=== PATIENT | male | born 1995 | race Caucasian/White ===

== ENCOUNTER 2017-06-01 17:16 | Emergency (ER) | payer BC, OTHER ==
[2017-06-01 17:40] VITALS: BP 175/102; PULSE 100; RESP 18; TEMP 98.8
[2017-06-01] MEDS ORDERED: SODIUM CHLORIDE 0.9% 1,000 ML IV STA (18:25)
--- NOTE | 2017-06-01 18:39 | ED ---
Dizziness HPI - General Chief Complaint: Dizziness Stated Complaint: ABDOMINAL PAIN Time Seen by Provider: 06/01/17 18:19 Source: patient, RN notes reviewed, old records reviewed Mode of arrival: ambulatory Limitations: no limitations - History of Present Illness Initial Comments: 21-year-old male presents emergency Department with episode of dizziness and lightheadedness. He was standing up at work, and was sent in for further evaluation. He reports that he has a dental infection recently started on amoxicillin. Patient reports that he has not been trying to drink fluids. Denies any chest pain shortness breath or abdominal pain. Denies any diarrhea or vomiting. Patient states that he has had no other recent symptoms. Patient denies any recent fever, chills, shortness of breath, chest pain, back pain, abdominal pain, nausea vomiting, numbness or tingling, dysuria or hematuria, constipation or diarrhea, headaches or visual changes, or any other current symptoms - Related Data Home Medications Medication Instructions Recorded Confirmed Ibuprofen [Motrin] 400 - 800 mg PO Q6HR PRN 06/01/17 06/01/17 Allergies Allergy/AdvReac Type Severity Reaction Status Date / Time No Known Allergies Allergy Verified 06/01/17 18:28 Review of Systems ROS Statement: Those systems with pertinent positive or pertinent negative responses have been documented in the HPI. ROS Other: All systems not noted in ROS Statement are negative. Past Medical History Past Medical History: No Reported History History of Any Multi-Drug Resistant Organisms: None Reported Past Surgical History: No Surgical Hx Reported Past Psychological History: No Psychological Hx Reported Smoking Status: Never smoker Past Alcohol Use History: None Reported Past Drug Use History: None Reported General Exam - General Exam Comments Initial Comments: Well-appearing 21-year-old male. No distress. Limitations: no limitations General appearance: alert, in no apparent distress Head exam: Present: atraumatic, normocephalic, normal inspection Eye exam: Present: normal appearance, PERRL, EOMI. Absent: scleral icterus, conjunctival injection, periorbital swelling ENT exam: Present: normal exam, normal oropharynx, mucous membranes moist. Absent: other (Patient has poor dentition, dental carries over tooth 18) Neck exam: Present: normal inspection. Absent: tenderness, meningismus, lymphadenopathy Respiratory exam: Present: normal lung sounds bilaterally. Absent: respiratory distress, wheezes, rales, rhonchi, stridor Cardiovascular Exam: Present: regular rate, normal rhythm, normal heart sounds. Absent: systolic murmur, diastolic murmur, rubs, gallop, clicks GI/Abdominal exam: Present: soft, normal bowel sounds. Absent: distended, tenderness, guarding, rebound, rigid Extremities exam: Present: normal inspection, full ROM, normal capillary refill. Absent: tenderness, pedal edema, joint swelling, calf tenderness Back exam: Present: normal inspection Neurological exam: Present: alert, oriented X3, CN II-XII intact Psychiatric exam: Present: normal affect, normal mood Skin exam: Present: warm, dry, intact, normal color. Absent: rash Course Vital Signs 06/01/17 17:38 Temperature 98.8 F Pulse Rate 100 Respiratory 18 Rate Blood Pressure 175/102 O2 Sat by Pulse 100 Oximetry EKG Findings - EKG Comments: EKG Findings:: EKG shows normal sinus rhythm. Ventricular rate of 60 beats provider. FL interval 140 ms. QRS ration 96 most seconds. QT QTC 370/[address] elevation or T-wave inversion. No atrial or ventricular arrhythmias. Medical Decision Making - Medical Decision Making 21-year-old male chief complaint of near Celexa and lightheadedness after standing while work today. Patient's labwork was reviewed and normal. No evidence of any rales. Patient's EKG was also reviewed and normal. Patient chest x-ray shows no abnormalities. Patient was feeling better after IV fluids. He reports that he is also having a dental infection currently. 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 Patient understands treatment plan will comply. Return parameters were discussed. - Lab Data Result diagrams: 06/01/17 18:40 06/01/17 18:40 Lab Results 06/01/17 06/01/17 Range/Units 18:40 18:40 WBC 6.7 (4.0-11.0) k/uL RBC 4.67 (4.30-5.90) m/uL Hgb 14.1 (13.0-17.5) gm/dL Hct 42.5 (39.0-53.0) % MCV 90.9 (80.0-100.0) fL MCH 30.1 (25.0-35.0) pg MCHC 33.1 (31.0-37.0) g/dL RDW 12.3 (11.5-15.5) % Plt Count 217 (150-450) k/uL Neutrophils % 52 % Lymphocytes % 38 % Monocytes % 7 % Eosinophils % 1 % Basophils % 1 % Neutrophils # 3.5 (1.3-7.7) k/uL Lymphocytes # 2.5 (1.0-4.8) k/uL Monocytes # 0.5 (0-1.0) k/uL Eosinophils # 0.1 (0-0.7) k/uL Basophils # 0.1 (0-0.2) k/uL Sodium 141 (137-145) mmol/L Potassium 4.3 (3.5-5.1) mmol/L Chloride 107 (98-107) mmol/L Carbon Dioxide 23 (22-30) mmol/L Anion Gap 11 mmol/L BUN 8 L (9-20) mg/dL Creatinine 0.78 (0.66-1.25) mg/dL Est GFR (MDRD) Af Amer >60 (>60 ml/min/1.73 sqM) Est GFR (MDRD) Non-Af >60 (>60 ml/min/1.73 sqM) Glucose 89 (74-99) mg/dL Calcium 9.6 (8.4-10.2) mg/dL Total Bilirubin 0.7 (0.2-1.3) mg/dL AST 23 (17-59) U/L ALT 22 (21-72) U/L Alkaline Phosphatase 58 (38-126) U/L Total Protein 7.8 (6.3-8.2) g/dL Albumin 4.6 (3.5-5.0) g/dL - Radiology Data Radiology results: report reviewed X-rays reveal any negative for any acute process. Disposition Clinical Impression: Lightheadedness, Dehydration Disposition: HOME SELF-CARE Condition: Good Instructions: Dizziness (ED) Additional Instructions: Patient advised to continue take the antibiotics, and Motrin for pain. Patient needs to remain hydrated as that is the cause of her lightheadedness and near syncopal episode. Patient should follow-up with a primary care provider. Return to emergency department if any alarming signs or symptoms occur. Referrals: None,Stated [Primary Care Provider] - 1-2 days Daisy Shields MD [STAFF PHYSICIAN] - 1-2 days Time of Disposition: 19:27
[2017-06-01 19:00] LABS: Basophils # (A) 0.1 k/uL (0-0.2); Basophils % (A) 1 %; CH 31.1; CHCM 34.4; Eosinophils # (A) 0.1 k/uL (0-0.7); Eosinophils % (A) 1 %; HCT 42.5 % (39.0-53.0); HDW 2.76; HGB 14.1 gm/dL (13.0-17.5); Luc # (Auto) 0.13; Luc % (Auto) 2; Lymphocytes # (A) 2.5 k/uL (1.0-4.8); Lymphocytes % (A) 38 %; MCH 30.1 pg (25.0-35.0); MCHC 33.1 g/dL (31.0-37.0); MCV 90.9 fL (80.0-100.0); Mean Platelet Volume 6.9; Monocytes # (A) 0.5 k/uL (0-1.0); Monocytes % (A) 7 %; Neutrophils # (A) 3.5 k/uL (1.3-7.7); Neutrophils % (A) 52 %; RBC 4.67 m/uL (4.30-5.90); RDW 12.3 % (11.5-15.5); WBC 6.7 k/uL (4.0-11.0); WBC (Perox) 6.65
[2017-06-01 19:10] LABS: ALT 22 U/L (21-72); AST 23 U/L (17-59); Alkaline Phosphatase 58 U/L (38-126); Anion Gap 11 mmol/L; Blood Urea Nitrogen 8 mg/dL (9-20); Calcium 9.6 mg/dL (8.4-10.2); Carbon Dioxide 23 mmol/L (22-30); Chloride 107 mmol/L (98-107); Glucose 89 mg/dL (74-99); Non-African American GFR(MDRD) >60 (>60 ml/min/1.73 sqM); Potassium 4.3 mmol/L (3.5-5.1); Sodium 141 mmol/L (137-145); Total Bilirubin 0.7 mg/dL (0.2-1.3); Total Protein 7.8 g/dL (6.3-8.2)
[2017-06-01] MEDS ORDERED: AMOXICILLIN 500MG STARTER PACK 3 CAP BTL PO STA (19:27)
--- NOTE | 2017-06-01 19:42 | XR ---
EXAMINATION TYPE: XR chest 2V DATE OF EXAM: 06/01/2017 COMPARISON: NONE HISTORY: Chest pain per order. TECHNIQUE: Frontal and lateral views of the chest are obtained. FINDINGS: There is no focal air space opacity, pleural effusion, or pneumothorax seen. The cardiac silhouette size is within normal limits. The osseous structures are intact. IMPRESSION: No acute cardiopulmonary process.
== END 2017-06-01 19:40 | disposition home or self-care (01) ==
LOC: EC 17:16
DX: E86.0 Dehydration (principal); K04.7 Periapical abscess without sinus; K02.9 Dental caries, unspecified
CPT/HCPCS: 36415; 71020; 80053; 85025; 93005; 99284

== ENCOUNTER 2017-09-19 20:12 | Emergency (ER) | payer BC, OTHER ==
[2017-09-19 21:10] VITALS: RESP 18; TEMP 98
--- NOTE | 2017-09-19 21:46 | ED ---
ENT HPI - General Chief complaint: Dental/Oral Stated complaint: dental pain; dizziness Time Seen by Provider: 09/19/17 21:09 Source: patient, family Mode of arrival: ambulatory Limitations: no limitations - History of Present Illness Initial comments: 22-year-old male patient presents to the emergency department today for evaluation of left upper dental pain. Patient states that this area has been hurting for the last week. He states that he does not currently have dental insurance and has been unable to follow-up with the dentist. He states that the pain seems to be getting worse and he cannot sleep related to this. States that times the pain makes him nauseated. He denies any fevers or chills pre- denies any facial swelling. Denies any difficulty opening and closing his mouth. Denies any difficulty swallowing. Patient denies any recent rash, shortness breath, chest pain, abdominal pain, vomiting, diarrhea, constipation, back pain, numbness, tingling, dizziness, weakness, hematuria, dysuria, urinary urgency, urinary frequency, headache, visual changes, or any other complaints. - Related Data Home Medications Medication Instructions Recorded Confirmed Ibuprofen [Motrin] 400 - 800 mg PO Q6HR PRN 06/01/17 09/19/17 Previous Rx's Medication Instructions Recorded Acetaminophen-Codeine 300-30mg 1 tab PO Q6H PRN #12 tablet 09/19/17 [Tylenol #3] Ibuprofen [Motrin] 600 mg PO Q8HR PRN #30 tab 09/19/17 Penicillin V Potassium [Pen Vee K] 500 mg PO Q6H #40 tablet 09/19/17 Allergies Allergy/AdvReac Type Severity Reaction Status Date / Time No Known Allergies Allergy Verified 09/19/17 21:46 Review of Systems ROS Statement: Those systems with pertinent positive or pertinent negative responses have been documented in the HPI. ROS Other: All systems not noted in ROS Statement are negative. Past Medical History Past Medical History: No Reported History History of Any Multi-Drug Resistant Organisms: None Reported Past Surgical History: No Surgical Hx Reported Past Psychological History: No Psychological Hx Reported Smoking Status: Never smoker Past Alcohol Use History: None Reported Past Drug Use History: None Reported General Exam Limitations: no limitations General appearance: alert, in no apparent distress, other (This is a well- developed, well-nourished adult male patient in no acute distress. Vital signs upon presentation are temperature 98.0F, pulse 94, respirations 18, blood pressure 140/77, pulse ox 97% on room air.) Eye exam: Present: normal appearance, PERRL, EOMI. Absent: scleral icterus, conjunctival injection, periorbital swelling ENT exam: Present: normal exam, normal oropharynx, mucous membranes moist, other (Patient has very poor dentition. Multiple broken teeth. Multiple dental caries. Area of concern is the left upper region, patient has multiple broken teeth with surrounding gingival hyperplasia and erythema. No evidence of drainable abscess.) Neck exam: Present: normal inspection. Absent: tenderness, meningismus, lymphadenopathy Respiratory exam: Present: normal lung sounds bilaterally. Absent: respiratory distress, wheezes, rales, rhonchi, stridor Cardiovascular Exam: Present: regular rate, normal rhythm, normal heart sounds. Absent: systolic murmur, diastolic murmur, rubs, gallop, clicks Neurological exam: Present: alert, oriented X3, CN II-XII intact Psychiatric exam: Present: normal affect, normal mood Skin exam: Present: warm, dry, intact, normal color. Absent: rash Course Vital Signs 09/19/17 09/19/17 20:47 21:53 Temperature 98 F 98 F Pulse Rate 94 78 Respiratory 18 18 Rate Blood Pressure 140/77 139/79 O2 Sat by Pulse 97 97 Oximetry Medical Decision Making - Medical Decision Making 22-year-old male patient presented to the emergency department today for evaluation of left upper dental pain. Physical examination did reveal very poor dentition with multiple broken teeth and extensive dental caries. Area of concern to the left upper mouth did reveal broken teeth with gingival hyperplasia and erythema. Patient will be given pain medication, anti- inflammatories, and pen VK. He is instructed to complete this prescription and full. He was given dental resources such as a dental clinic and at the dental school. He is instructed to follow-up as soon as possible. He is instructed to return here immediately for any new, worsening, or concerning symptoms. He verbalizes understanding and agrees this plan. Disposition Clinical Impression: Pain, dental Disposition: HOME SELF-CARE Condition: Good Instructions: Dental Abscess (ED), Dental Caries (ED), Toothache (ED) Additional Instructions: Swish with warm saltwater. Take medications as directed. Follow up with dentistry as soon as possible, below are some resources. Return here immediately for any new, worsening, or concerning symptoms. Please follow up with the [facility]. [facility] [place] [address]. Phone number for new patients or [phone] for existing patients. [facility]. Must pay for x-rays then services are free. Call for an appoitnment. Prescriptions: Acetaminophen-Codeine 300-30mg [Tylenol #3] 1 tab PO Q6H PRN #12 tablet PRN Reason: Pain Ibuprofen [Motrin] 600 mg PO Q8HR PRN #30 tab PRN Reason: Pain Penicillin V Potassium [Pen Vee K] 500 mg PO Q6H #40 tablet Referrals: None,Stated [Primary Care Provider] - 1-2 days Time of Disposition: 21:48
[2017-09-19 21:54] VITALS: BP 139/79; PULSE 78
== END 2017-09-19 21:54 | disposition home or self-care (01) ==
LOC: EC 20:12
DX: K02.9 Dental caries, unspecified (principal); S02.5XXA Fracture of tooth (traumatic), initial encounter for closed fracture; K06.1 Gingival enlargement; X58.XXXA Exposure to other specified factors, initial encounter
CPT/HCPCS: 99282